=== PATIENT | female | born 1985 | race Two or more races ===

== ENCOUNTER 2016-09-10 00:20 | Emergency (ER) | payer SELFPAY ==
[~2016-09-10] VITALS: Ht 160 cm; Wt 89.4 kg
[~2016-09-10 00:20] MED LIST: CLINDAMYCIN HC300 MG ORAL; NKM; NORCO 5-325 TA1 EACH ORAL; PREDNISONE20 MG ORAL
[2016-09-10] MEDS ORDERED: Dexamethasone 4mg/ml vial IM ONE (01:00)
[2016-09-10] MEDS ORDERED: IBUPROFEN600 MG ORAL (01:04)
[2016-09-10] MEDS ORDERED: AMOXICILLIN500 MG ORAL (01:04)
[2016-09-10 01:19] VITALS: BP 124/78
--- NOTE | 2016-09-10 01:39 | Emergency Room Report ---
History of Present Illness General Chief Complaint: Sore Throat Source: Patient Present Illness HPI 31-year-old female presents ED complaining of sore throat x3 days. Patient has low-grade fever. Temp in triage 100.4. Notes pain with swallowing. Pain is a 6/10, throbbing, nonradiating. Denies cough. Denies sick contacts recent travel. No other aggravating relieving factors. Denies any other associated symptoms Allergies: Coded Allergies: No Known Allergies (Unverified , 08/29/15) Patient History Past Medical History: none Past Surgical History: none Pertinent Family History: none Social History: Denies: alcohol use, drug use, smoking Last Menstrual Period: 3 weeks ago Now: No Immunizations: UTD Reviewed Nursing Documentation: PMH: Agreed, PSxH: Agreed Nursing Documentation-PMH Past Medical History: No Stated History Review of Systems All Other Systems: negative except mentioned in HPI Physical Exam Vital Signs Date Time Temp Pulse Resp B/P Pulse Ox O2 Delivery O2 Flow Rate FiO2 09/10/16 00:27 100.4 114 18 124/78 98 09/10/16 01:19 Room Air Sp02 EP Interpretation: reviewed, normal General Appearance: no apparent distress, alert, GCS 15, non-toxic Head: normocephalic Eyes: bilateral eye PERRL, bilateral eye normal inspection ENT: hearing grossly normal, normal voice, TMs + canals normal, pharyngeal erythema Neck: normal inspection Respiratory: normal inspection Cardiovascular #1: normal inspection Gastrointestinal: normal inspection Rectal: deferred Genitourinary: no CVA tenderness Musculoskeletal: back normal Neurologic: alert, oriented x3, responsive, motor strength/tone normal, sensory intact, speech normal Psychiatric: normal inspection Skin: normal inspection Lymphatic: normal inspection Medical Decision Making Diagnostic Impression: Primary Impression: Pharyngitis Qualified Codes: J02.9 - Acute pharyngitis, unspecified ER Course Hospital Course 31-year-old female presents to ED complaining of sore throat + fever Differential diagnoses include: URI, pharyngitis, otitis media Clinical course Patient placed on stretcher. After initial history, physical exam reveals a young male in no acute distress. Bilateral TM unremarkable. There is pharyngeal erythema w/o tonsillar exudates. No lymphadenopathy. Clinical findings consistent with pharyngitis. Reassurance given given decadron in ED Diagnosis - pharyngitis Stable and discharged home with prescriptions for amoxicillin. Instructed to followup with PMD. return to ED if symptoms recur or worsen Last Vital Signs Date Time Temp Pulse Resp B/P Pulse Ox O2 Delivery O2 Flow Rate FiO2 09/10/16 01:19 100.4 88 18 124/78 98 Room Air Status: improved Disposition: HOME, SELF-CARE Condition: Stable Scripts Ibuprofen* (MOTRIN*) 600 Mg Tablet 600 MG ORAL Q8H Y for For Pain, #30 TAB 0 Refills Prov: MIRANDA RUIZ M.D. 09/10/16 Amoxicillin* (AMOXIL*) 500 Mg Capsule 500 MG ORAL THREE TIMES A DAY, #21 CAP Prov: MIRANDA RUIZ M.D. 09/10/16 Patient Instructions: Pharyngitis, Srzi-cy-Tzah MIRANDA RUIZ M.D. Sep 10, 2016 01:39
== END 2016-09-10 01:23 | disposition home or self-care (01) ==
LOC: EMR 00:46
DX: J02.9 Acute pharyngitis, unspecified (principal); R50.9 Fever, unspecified
CPT/HCPCS: 96372; 99284; J1100